=== PATIENT | female | born 1945 | race Hispanic/Latino ===

== ENCOUNTER → 2023-06-19 | Outpatient (CLI) | payer OTHER ==
[2023-06-19 15:46] LABS: CREATININE 0.9 mg/dL (0.5-1.5); MAGNESIUM 1.9 mg/dL (1.80-2.40); POTASSIUM 3.8 mmol/L (3.5-5.1)
== END | disposition home or self-care (01) ==
LOC: LAB 13:56
PROVIDERS: ATTEND Physician Assistant
DX: I10 Essential (primary) hypertension (principal); E78.5 Hyperlipidemia, unspecified
CPT/HCPCS: 36415; 80048; 83735; 83880

== ENCOUNTER 2025-03-02 08:41 | Day surgery (SDC) | payer OTHER ==
[2025-02-27 11:33] LABS: BASOPHILS # (AUTO) 0.01 K/uL (0.00-0.20); BASOPHILS % (AUTO) 0.3 % (0.0-5.0); EOSINOPHILS # (AUTO) 0.03 K/uL (0.00-0.70); EOSINOPHILS % (AUTO) 0.8 % (0.0-8.0); HEMATOCRIT 29.8 % (36-48); IMMATURE GRANULOCYTE ABSOLUTE 0.34 K/uL (0-1); LYMPHOCYTES # (AUTO) 1.3 K/uL (1.0-4.8); LYMPHOCYTES % (AUTO) 32.4 % (21.0-51.0); MEAN CORPUSCULAR HEMOGLOBIN 27.9 pg (27.0-33.0); MEAN CORPUSCULAR HGB CONC 31.5 g/dL (32.0-36.0); MEAN CORPUSCULAR VOLUME 88.4 fL (79-99); MONOCYTES # (AUTO) 0.3 K/uL (0.1-1.0); NEUTROPHILS % (AUTO) 50.7 % (40.0-77.0); PLATELET COUNT (AUTO) 193 K/uL (130-400); RED BLOOD CELL COUNT(AUTO) 3.37 MIL/uL (4.00-5.50); RED CELL DISTRIBUTION WIDTH 18.8 % (11.0-15.5); WHITE BLOOD COUNT (AUTO) 3.9 K/uL (4.8-10.8)
[2025-02-27 11:41] LABS: CREATININE 0.9 mg/dL (0.5-1.0); POTASSIUM 3.4 mmol/L (3.5-5.1)
[2025-02-27 14:36] VITALS: BP 132/78; PULSE 73; RESP 14; TEMP 97.5
--- NOTE | 2025-02-28 11:15 | NUR ---
REPORT REPORTED CBC AND BMP TO DR RUBIO. OK TO PROCEED
[2025-03-02] VITALS (7 sets, daily range): BP systolic 102–113; BP diastolic 38–72; PULSE 50–54; RESP 16–20; TEMP 97–97.9
[~2025-03-02] VITALS: Ht 147.3 cm; Wt 49.8 kg
[~2025-03-02 08:41] MED LIST: ALLO100T PO; APIX5TAB PO; ATOR40TA69 PO; CARV3.12 PO; CLOP75TA32 PO; DRON400T7 PO; FURO20TA4 PO; MIDO5TAB4 PO; PREG75CA76 PO; SACU1TAB PO; SPIR25TA6 PO
--- NOTE | 2025-03-02 09:03 | EKG ---
[facility] Test Date: 2025-03-02 Test Time: 09:00:08 Pat Name: EB WOLFE Department: [facility] Gender: F Instructional Leader: [id number] : 1945 Requested By: ADA RUBIO Order Number: [id number] Reading MD: Bright Solomon Measurements Intervals [place] Rate: 54 P: 0 PA: 0 QRS: 230 QRSD: 129 T: 66 QT: 506 QTc: 494 Interpretive Statements Atrial flutter Ventricular premature complex Anterolateral infarct, old No previous ECG available for comparison Electronically Signed On 03-03-2025 15:50:41 CDT by Bright Solomon Please click the below link to view image of tracing.
[2025-03-02] MEDS ORDERED: 0.9%NACL 1000ML 1,000 ML IV SCH (11:00)
[2025-03-02] MEDS ORDERED: proPOFol 10 MG/ML 20ML VIAL IV ONE (12:54)
--- NOTE | 2025-03-02 13:03 | NUR ---
PT SYNCHRONIZED CARDIOVERTED 150 JOULES PT TOLERATED WELL NAD VSS PT REMAINED IN A FIB
--- NOTE | 2025-03-02 13:09 | NUR ---
PT SYNCHRONIZED CARDIOVERTED 200 JOULES AT THIS TIME BY DR RAMIRO WANG VSS PT DID CONVERT TO NSR
--- NOTE | 2025-03-02 13:24 | EKG ---
[facility] Test Date: 2025-03-02 Test Time: 13:05:34 Pat Name: EB WOLFE Department: [facility] Room: [facility] Gender: F Tack Welder: [id number] : 1945 Requested By: ADA RUBIO Order Number: [id number] Reading MD: Bright Solomon Measurements Intervals [place] Rate: 54 P: 0 HI: 181 QRS: -55 QRSD: 128 T: 90 QT: 511 QTc: 475 Interpretive Statements Sinus rhythm Ventricular premature complex Left bundle branch block Compared to ECG 03/02/2025 09:00:08 Left bundle-branch block now present Atrial flutter no longer present Myocardial infarct finding no longer present Electronically Signed On 03-03-2025 15:50:57 CDT by Bright Solomon Please click the below link to view image of tracing.
--- NOTE | 2025-03-02 13:30 | NUR ---
PT AWAKE VSS NAD
--- NOTE | 2025-03-02 16:26 | EKG ---
[facility] Test Date: 2025-03-02 Test Time: 13:34:00 Pat Name: EB WOLFE Department: [facility] Room: Gender: F Infection Control Manager: [id number] : 1945 Requested By: ADA RUBIO Order Number: [id number] Reading MD: Bright Solomon Measurements Intervals [place] Rate: 54 P: 0 HI: 0 QRS: -48 QRSD: 106 T: 181 QT: 554 QTc: 528 Interpretive Statements Atrial fibrillation Incomplete RBBB and LAFB Probable LVH with secondary repol abnrm Prolonged QT interval Electronically Signed On 03-03-2025 15:51:10 CDT by Bright Solomon Please click the below link to view image of tracing.
--- NOTE | 2025-03-13 12:02 | PRN ---
Procedure Note Date of procedure: 03/02/2025 Diagnosis: Persistent atrial fibrillation Procedure: Cardioversion Physician: Wiley Rubio MD The patient was brought to the day patient area in a fasting state. Anesthesia was provided by the anesthesia service. Cardioversion was performed with a synchronized shock at 200 joules resulting in sinus rhythm. The patient tolerated the procedure well. Final diagnosis: Persistent atrial fibrillation, status post successful cardio version Disposition: The patient will be discharged later today and will follow up with me in the office in approximately two weeks. WILEY RUBIO MD March 13, 2025 12:02
== END 2025-03-02 14:53 | disposition home or self-care (01) ==
LOC: DAH 08:41
PROVIDERS: ATTEND Internal Medicine Cardiovascular Disease
DX: I48.19 Other persistent atrial fibrillation (principal); I25.5 Ischemic cardiomyopathy; I44.7 Left bundle-branch block, unspecified; I25.2 Old myocardial infarction; I49.3 Ventricular premature depolarization; I10 Essential (primary) hypertension; E78.5 Hyperlipidemia, unspecified; I21.4 Non-ST elevation (NSTEMI) myocardial infarction; I25.10 Atherosclerotic heart disease of native coronary artery without angina pectoris; E11.9 Type 2 diabetes mellitus without complications; I45.19 Other right bundle-branch block; Z95.0 Presence of cardiac pacemaker; Z85.3 Personal history of malignant neoplasm of breast; Z88.6 Allergy status to analgesic agent; Z79.899 Other long term (current) drug therapy
CPT/HCPCS: 80048; 85025; 36415; 92960; 93005 ×3; J2704; A4620; A4215; A4222; A4221; A4663; A4216; A4606; A4223 ×3; J3490

== ENCOUNTER 2025-04-19 09:27 | Observation (INO) | payer OTHER ==
[2025-04-17 12:53] LABS: BASOPHILS # (AUTO) 0.01 K/uL (0.00-0.20); BASOPHILS % (AUTO) 0.4 % (0.0-5.0); EOSINOPHILS # (AUTO) 0.13 K/uL (0.00-0.70); EOSINOPHILS % (AUTO) 4.6 % (0.0-8.0); HEMATOCRIT 27.7 % (36-48); IMMATURE GRANULOCYTE ABSOLUTE 0.01 K/uL (0-1); LYMPHOCYTES # (AUTO) 1.1 K/uL (1.0-4.8); LYMPHOCYTES % (AUTO) 39.6 % (21.0-51.0); MEAN CORPUSCULAR HEMOGLOBIN 27.8 pg (27.0-33.0); MEAN CORPUSCULAR HGB CONC 33.6 g/dL (32.0-36.0); MEAN CORPUSCULAR VOLUME 82.9 fL (79-99); MONOCYTES # (AUTO) 0.3 K/uL (0.1-1.0); NEUTROPHILS # (AUTO) 1.3 K/uL (1.8-7.7); PLATELET COUNT (AUTO) 162 K/uL (130-400); RED BLOOD CELL COUNT(AUTO) 3.34 MIL/uL (4.00-5.50); RED CELL DISTRIBUTION WIDTH 15.8 % (11.0-15.5); WHITE BLOOD COUNT (AUTO) 2.8 K/uL (4.8-10.8)
[2025-04-17 13:04] LABS: CREATININE 1.2 mg/dL (0.5-1.0); POTASSIUM 3.3 mmol/L (3.5-5.1)
[2025-04-17 13:06] LABS: INR 1.14 (0.85-1.15); PROTHROMBIN TIME 11.9 SEC (9.6-11.6)
[2025-04-17 13:07] LABS: PARTIAL THROMBOPLASTIN TIME 35.5 SEC (26.3-35.5)
[2025-04-17 13:08] VITALS: BP 104/58; PULSE 58; RESP 18; TEMP 97.6
--- NOTE | 2025-04-17 13:21 | EKG ---
[facility] Test Date: 2025-04-17 Test Time: 12:38:02 Pat Name: EB WOLFE Department: [facility] Room: [facility] Gender: F Proofer Apprentice: [id number] : 1945 Requested By: Manjinder NAVARRO Order Number: [id number] Reading MD: Vaughn Decker Measurements Intervals [place] Rate: 54 P: 0 MI: 257 QRS: -50 QRSD: 141 T: 119 QT: 478 QTc: 442 Interpretive Statements Sinus arrhythmia Atrial premature complex Prolonged MI interval RBBB and LAFB LVH with secondary repolarization abnormality Compared to ECG 03/02/2025 13:34:00 Atrial premature complex(es) now present First degree AV block now present Atrial fibrillation no longer present Incomplete right bundle-branch block no longer present Prolonged QT interval no longer present Electronically Signed On 04-19-2025 10:16:44 CDT by Vaughn Decker Please click the below link to view image of tracing.
[2025-04-17 15:07] LABS: BAND NEUTROPHILS % (MANUAL) 1 % (0-2); EOSINOPHILS % (MANUAL) 4 % (1-6); LYMPHOCYTES % (MANUAL) 34 % (22-44); MAN.DIFF COMMENT-IMPRESSION MANUAL DIFFERENTIAL; MONOCYTES % (MANUAL) 6 % (2-9); REACTIVE LYMPHOCYTES 8 % (0-0); SEGMENTED NEUTROPHILS % 47 % (40-70); TOTAL CELLS COUNTED 100
--- NOTE | 2025-04-18 12:42 | NUR ---
report reported bmp and cbc to belen boone np. ok to proceed
[~2025-04-19] VITALS: Ht 144.8 cm; Wt 46.0 kg
[2025-04-19] VITALS (12 sets, daily range): BP systolic 90–145; BP diastolic 45–89; PULSE 65–91; RESP 16–20; TEMP 96.3–98.2; O2SAT 97
[~2025-04-19 09:27] MED LIST changes: -DRON400T7 PO; +EZET10TA48 PO; -FURO20TA4 PO; +FURO40TA5 PO; +METO2.5T2 PO; +PANT40TA54 PO; +PROLIA INJ; -SPIR25TA6 PO
[2025-04-19] MEDS: 0.9%NACL 1000ML 1,000 ML IV SCH (10:50)
[2025-04-19] MEDS ORDERED: SODIUM BICARB 50MEQ 50ML VIAL 50 ML ONE (14:43)
[2025-04-19] MEDS ORDERED: BUPIvacaine/PF 0.25% 30ML VIAL IJ ONE (14:43)
[2025-04-19] MEDS ORDERED: LIDOCAINE HCL 1% MDV 50ML VIAL ONE (14:43)
[2025-04-19] MEDS ORDERED: MIDAZOLAM HCL 1 MG/ML 2ML VIAL ONE ×4 (14:45→17:38)
[2025-04-19] MEDS ORDERED: FENTanyl CITRate PF 50 MCG/1 ML 2ML VIAL ONE ×2 (14:45→17:38)
[2025-04-19] MEDS ORDERED: ceFAZolin SODIUM 1 GM VIAL ONE (14:47)
[2025-04-19] MEDS ORDERED: IOHEXOL-350 50ML VIAL IV ONE (14:57)
[2025-04-19] MEDS ORDERED: ATROPINE 1MG SYG IVP ONE (15:25)
[2025-04-19] MEDS ORDERED: phenylEPHRINE HCL 10 MG/ML 1ML VIAL IV ONE (15:46)
[2025-04-19] MEDS ORDERED: DEXTROSE 50%-WATER 50 ML DISP.SYRIN IV PRN (18:00)
[2025-04-19] MEDS ORDERED: PANTOPrazole 40 MG TAB DR PO SCH (18:00)
[2025-04-19] MEDS ORDERED: acetaMINOPHEN WITH coDEINE 1 TAB TAB PO PRN (18:00)
--- NOTE | 2025-04-19 18:40 | NUR ---
ADMISSION PATIENT ARRIVED ON FLOOR. RIGHT PACEMAKER SITE WITHOUT REDNESS, BRUISING, SWELLING, HEMATOMA. PATIENT ALERT AND ORIENTED, A LITTLE SLEEPY, BUT RESPONSIVE. MINOR COMPLAINTS OF DISCOMFORT TO INCISION SITE. ART OBJECTS REPAIRER, RN TO ADMIT PATIENT AND COMPLETE ADMISSION STATUS.
--- NOTE | 2025-04-19 19:37 | HP ---
[facility] HISTORY & PHYSICAL Date Patient Seen: Apr 19, 2025 Time of Visit: 19:36 Supervising Physician: Dr. Shaheed Gonzáles Primary Care Physician: Dr. Porter Castelan Outpatient Specialists: Dr. Sudeep Campbell Inpatient Consults: Dr. Sudeep Campbell PROBLEM LIST: Cardiomyopathy, s/p BIV ICD insertion done on 04/19/[address] Sudeep Campbell Advanced LV dysfunction with EF 30% per echo on March 2025 Coronary artery disease s/p CABG x2 with PATEL-LAD and a SVG-RCA on 08/13/[address] 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 Marcano is a 79-year-old female with a history of DM, HTN, HDL, neuropathy, left breast lumpectomy, radiation therapy and chemo for left breast cancer, mastectomy, CAD s/p CABG x2, advanced LV dysfunction with EF 30% per echo on March 2025, and cardiomyopathy who presented to [facility] for elective procedure. Patient underwent BIV ICD insertion on 04/19/[address] Sudeep Campbell. The patient was admitted to PCCU for overnight monitoring. BIS team was consulted for medical management. Remarkable labs results: WBCs 2.8, RBCs 3.34, hemoglobin 9.3, hematocrit 27.7. Sodium 131, potassium 3.3, chloride 92, BUN 49, creatinine 1.2, GFR 47, blood glucose 114, total calcium 8.1. PT 11.9. I assessed the patient at bedside in 231. The patient appeared comfortable, breathing was even, unlabored, in no distress. Patient reports still little drowsy from the surgery but is oriented x3. daughter and at bedside. I informed them of plan of care. They verbalized understanding and are in agreement with the plan. Plan and assessment are listed below. PAST MEDICAL HX: see above PAST SURGICAL HX: x3, cholecystectomy, left mastectomy, CABG x2 with PATEL to LAD and a SVG-RCA on August 13, [address] Galdamez SOCIAL HISTORY: No tobacco, ETOH, or illicit drug use Family history: FATHER: Unknown. MOTHER: Alzheimer's dementia, Parkinson's Coded Allergies: tramadol (Unverified Allergy, Unknown, 02/27/25) REVIEW OF SYSTEMS: 12 point ROS reviewed with patient. Pertinent positives mentioned above. Otherwise negative. PHYSICAL EXAM: GENERAL: Alert, awake oriented x 3 HEENT: EOMI, Sclera non icteric, moist mucosa NECK: Supple, no JVD, trachea midline LUNGS: Clear breath sounds bilaterally. No wheezes HEART: Regular rate and rhythm. Normal S1 and S2, without murmurs ABD: Abdomen soft, nontender. Bowel sounds present EXT: No clubbing cyanosis or edema CHEST WALL: Clean dressing in place. NEURO: Alert and oriented x3, follows commands Vital Signs (last 8hr) Date Time Temp Pulse Resp B/P (MAP) Pulse Ox O2 Delivery O2 Flow Rate FiO2 04/19/25 18:40 96.3 71 16 116/60 100 Room Air LABS: DIAGNOSTICS / RADIOLOGY RESULTS: [ ] PLAN Admit to PCCU s/p BIV ICD insertion with continuous cardiac monitoring. Follow Dr. Campbell's recommendations. Bed rest for now. Start medications ordered by Dr. Campbell: -Doxycycline, metolazone, Plavix, atorvastatin, amlodipine, Entresto, midodrine, Lasix, CTA, Coreg, Lyrica, Protonix, Tylenol codeine. P.r.n. medications for: Pain management, nausea, vomiting, hypertension, shortness of breath. Blood pressures every4 hours and as needed. Glucometer checks a.c. and HS with insulin regular sliding scale. A.m. labs. Monitor renal and liver function. Monitor electrolytes and treat accordingly. DVT and GI prophylaxis. Further orders upon hospitalization course. NEURO: Minimize central acting medications as possible. Maintain fall precautions, adequate lighting during the day PULMONARY: Supplemental 02 as needed. Maintain aspiration precautions at all times CARDIOVASCULAR: Follow hemodynamics. Vital signs per facility protocol GI & NUTRITION: Continue with nutritional support. Continue stool softeners and laxatives as needed. KIDNEYS & ELECTROLYTES: Strict monitoring of intake, output and overall fluid balance. Avoid nephrotoxic medications to the extent possible. Medications to be dosed according to renal function. Monitor electrolytes and replace as needed ENDOCRINE: Maintain blood glucose between 100-180 at all times. Hypoglycemia protocol in place INFECTIOUS DISEASE: Trend temperature, WBC and procalcitonin level Follow cultures, deescalate antibiotics as soon as possible. Panculture if new onset fever ONCOLOGY/HEMATOLOGY/COAGULATION: Monitor for s/s of bleeding Monitor hemoglobin, coagulation studies as needed SKIN: Pressure ulcer prevention per facility protocol Specialty mattress ORTHO/REHAB: Continue PT/OT Prophylaxis: Continue GI and DVT prophylaxis Code Status: Full Resuscitation Disposition: TBD ATTESTATION BY PHYSICIAN I have evaluated the patient chart, medical records, and spoke with appropriate staff. I reviewed the documentation, medical decision making, and treatment plan as noted by the mid-level provider above. I agree with the findings and plan of care. Waldo Gonzáles MD, [facility] Apr 19, 2025 19:36
[2025-04-19] MEDS: miDODRine HCL 5 MG TABLET PO SCH (21:00)
[2025-04-19] MEDS: INSULIN humuLIN R 100 UNIT/ML 3ML SQ SCH (21:00)
--- NOTE | 2025-04-19 22:05 | NUR ---
RE: INABILITY TO VOID AND 710ML PREVOID VIA BLADDER SCANNER PT WAS PUT ON BED ORTEGA FOR 20 MINUTES WITHOUT SUCCESS, IN AND OUT CATHETERIZATION PERFORMED PER PROVIDER ORDER. ASEPTIC TECHNIQUE MAINTAINED THROUGHOUT PROCEDURE. PT POSITIONED SUPINE, PERINEAL AREA CLEANSED WITH ANTISEPTIC SOLUTION. LINDA YELLOW URINE RETURNED TOTAL OUTPUT OF 700ML. CATHETER REMOVED POST DRAINAGE. PATIENT TOLERATED PROCEDURE WELL WITHOUT COMPLICATIONS.
[2025-04-19] MEDS: EZETIMIBE 10 MG TAB PO SCH (22:22)
[2025-04-19] MEDS: furoSEMIDE 40 MG TABLET PO SCH (22:22)
[2025-04-19] MEDS: pregABALin 75 MG CAPSULE PO SCH (22:22)
[2025-04-19] MEDS: carVEDIlol 3.125 MG TABLET PO SCH (22:23)
[2025-04-19] MEDS: SACUBITRIL/VALSARTAN 1 EACH TABLET PO SCH (22:23)
[2025-04-19] MEDS: ceFAZolin SODIUM 1 GM VIAL IVPB SCH (22:47)
[2025-04-20] VITALS (8 sets, daily range): BP systolic 83–110; BP diastolic 46–66; PULSE 60–80; RESP 16–18; TEMP 97.8–98.9; O2SAT 97–99
--- NOTE | 2025-04-20 01:43 | NUR ---
Call made to [facility] due to bp 97/47 at this time. midodrine 5mg was held last night due to elevated bp.
[2025-04-20] MEDS: miDODRine HCL 5 MG TABLET PO ONE (01:54)
--- NOTE | 2025-04-20 01:54 | NUR ---
Received order for midodrine 5mg po x1.
--- NOTE | 2025-04-20 02:03 | NUR ---
@2130pm 04/19/25 contacted [facility]. Reported urine retention of 710ml of urine in bladder as per bladder scan. Patient voiced that she was unable to urinate and was feeling discomfort to suprapubic area. Received order to try to get patient to void in bed garcia, if unable to order in and out straight cath x1.
[2025-04-20] MEDS: acetaMINOPHEN WITH coDEINE 1 TAB TAB PO PRN (04:08)
--- NOTE | 2025-04-20 09:12 | NUR ---
DCP: HOME Pt lives at home with her Navjot Marcano [phone]. Pt reports that assists her with ADLS and transportation as needed, most of time pt is independent. They have applied for provider services and are pending decision. Couple receives food stamp assistance $200 a month. Pt has regular walker and shower chair, no H or HD services. PCP is Porter Castelan and uses [facility] for rx needs. Denies need for SNF, states her will transport her home at dc Addendum: 04/20/25 at 0912 by DIANE BOWLING Amended: Links added.
[2025-04-20] MEDS: metoLAZONE 2.5 MG TABLET PO SCH (09:26)
[2025-04-20] MEDS: DOXYCYCLINE HYCLATE 100 MG TABLET PO SCH (09:26)
[2025-04-20] MEDS: alloPURInol 100 MG TABLET PO SCH (09:26)
[2025-04-20] MEDS: atorVAStatin 40 MG TABLET PO SCH (09:27)
[2025-04-20] MEDS: cloPIDOgrel 75MG TAB PO SCH (09:27)
--- NOTE | 2025-04-20 09:59 | PN ---
[facility] PROGRESS NOTE Date Patient Seen: Apr 20, 2025 Time of Visit: 09:59 Supervising Physician: [Santo Gilbert MD ] Primary Care Physician: Dr. Porter Castelan Outpatient Specialists: Dr. Sudeep Navarro Inpatient Consults: Dr. Sudeep Navarro PROBLEM LIST: Cardiomyopathy, s/p BIV ICD insertion done on 04/19/[address] Sudeep Navarro Advanced LV dysfunction with EF 30% per echo on March 2025 Coronary artery disease s/p CABG x2 with PATEL-LAD and a SVG-RCA on 08/13/[address] 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 She is awake alert and oriented x3. Ambulating to restroom without any respiratory distress. Although she does report pain 8/10 to right chest wall incision post ICD placement. Per tele monitors patient is ventricular paced in the 70s. Blood pressures were marginal this morning 83/ 46 as per patient's daughter she takes midodrine at home 5 mg 3 times a day. Education was restarted and blood pressures improved to one 0 7/48 saturating 100% at room air in no apparent respiratory distress and afebrile. H&H is stable 8.9/27.7 with a platelet count of 157 K. sodium of 133 potassium of 2.6 was covered per protocol. Creatinine of 0.9 with a GFR of 66 improved from previous labs. Glucose 152 mg/dL albumin of 2.9. On chest x-ray there is no pneumothorax. Mild bilateral pulmonary infiltrates are seen may be related to mild pulmonary vascular congestion with possible superimposed pneumonitis. Small right pleural effusion is seen. We will continue follow cardiology recommendations. Likely DC in the next 24-48 hours once cleared by cardiology team. REVIEW OF SYSTEMS: 12 point ROS reviewed with patient. Pertinent positives mentioned above. Othe rwise negative. PHYSICAL EXAM: GENERAL: Alert, awake oriented x 3 HEENT: EOMI, Sclera non icteric, moist mucosa NECK: Supple, no JVD, trachea midline LUNGS: Clear breath sounds bilaterally. No wheezes HEART: Regular rate and rhythm. Normal S1 and S2, without murmurs ABD: Abdomen soft, nontender. Bowel sounds present EXT: No clubbing cyanosis or edema CHEST WALL: Clean dressing in place. NEURO: Alert and oriented x3, follows commands Vital Signs (last 8hr) Date Time Temp Pulse Resp B/P (MAP) Pulse Ox O2 Delivery O2 Flow Rate FiO2 04/20/25 08:00 98.8 72 16 83/46 100 Room Air 04/20/25 03:00 99.0 80 18 110/66 97 Room Air LABS: Chemistry Labs: Test 04/20/25 05:41 Range/Units Whole Blood Glucose 96 70-110 MG/DL DIAGNOSTICS / RADIOLOGY RESULTS: [ [place] [address] [place] [id number] IMAGING REPORT Signed PATIENT: EB WOLFE MR#: [id number] : 1945 SEX: F AGE: 79 LOCATION: 2AH ORDER 2300 STATUS: ADM IN REPORT#: [id number] SERVICE 0600 REASON: s/p biv icd insertion ORDERING PHYSICIAN: Manjinder NAVARRO II, MD PROCEDURE: CXR1VW - CHEST 1VW CHEST 1VW HISTORY: Pacemaker insertion COMPARISON: 08/18/2011 FINDINGS: A frontal projection of the chest was obtained. Mild bilateral pulmonary infiltrates are seen may be related to mild pulmonary vascular congestion with possible superimposed pneumonitis. Right pleural effusion is seen. Poststernotomy changes are seen. The heart is enlarged. Degenerative changes of the thoracolumbar spine are present. Pacemaker is seen entering from the right. Degenerative changes are seen. No evidence of aortic calcification is seen. IMPRESSION: 1. Mild bilateral pulmonary infiltrates are seen may be related to mild pulmonary vascular congestion with possible superimposed pneumonitis. DICTATED BY: CJ FINLEY MD DATE: 04/20/25 1218 ELECTRONICALLY SIGNED BY: CJ FINLEY MD DATE: 04/20/25 1222 ] PLAN continue PCU status l likely discharge in next 24 to 48 hours once cleared by cardiology Follow cardiology recommendations Hold amlodipine, Entresto due to chronic hypotension on midodrine at home Glucometer checks a.c. and HS with insulin regular sliding scale. A.m. labs. Monitor renal and liver function. Monitor electrolytes and treat accordingly. DVT and GI prophylaxis. Further orders upon hospitalization course. NEURO: Minimize central acting medications as possible. Maintain fall precautions, adequate lighting during the day PULMONARY: Supplemental 02 as needed. Maintain aspiration precautions at all times CARDIOVASCULAR: Follow hemodynamics. Vital signs per facility protocol GI & NUTRITION: Continue with nutritional support. Continue stool softeners and laxatives as needed. KIDNEYS & ELECTROLYTES: Strict monitoring of intake, output and overall fluid balance. Avoid nephrotoxic medications to the extent possible. Medications to be dosed according to renal function. Monitor electrolytes and replace as needed ENDOCRINE: Maintain blood glucose between 100-180 at all times. Hypoglycemia protocol in place INFECTIOUS DISEASE: Trend temperature, WBC and procalcitonin level Follow cultures, deescalate antibiotics as soon as possible. Panculture if new onset fever ONCOLOGY/HEMATOLOGY/COAGULATION: Monitor for s/s of bleeding Monitor hemoglobin, coagulation studies as needed SKIN: Pressure ulcer prevention per facility protocol Specialty mattress ORTHO/REHAB: Continue PT/OT Prophylaxis: Continue GI and DVT prophylaxis Code Status: Full Resuscitation Disposition: TBD ATTESTATION BY PHYSICIAN I attest that I reviewed and discussed the case with the Physician Live In Housekeeper as well as agree with the Physician Live In Housekeeper's findings, plans of care, and documentation above. Santo Bowman MD, [facility] Apr 20, 2025 09:59
[2025-04-20] MEDS ORDERED: 0.9% NACL 250ML 250 ML IV SCH (10:00)
[2025-04-20 10:14] LABS: BASOPHILS # (AUTO) 0.01 K/uL (0.00-0.20); BASOPHILS % (AUTO) 0.3 % (0.0-5.0); EOSINOPHILS # (AUTO) 0.05 K/uL (0.00-0.70); EOSINOPHILS % (AUTO) 1.3 % (0.0-8.0); HEMATOCRIT 27.7 % (36-48); IMMATURE GRANULOCYTE ABSOLUTE 0.04 K/uL (0-1); LYMPHOCYTES # (AUTO) 0.9 K/uL (1.0-4.8); LYMPHOCYTES % (AUTO) 22.8 % (21.0-51.0); MEAN CORPUSCULAR HEMOGLOBIN 27.5 pg (27.0-33.0); MEAN CORPUSCULAR HGB CONC 32.1 g/dL (32.0-36.0); MEAN CORPUSCULAR VOLUME 85.5 fL (79-99); MONOCYTES # (AUTO) 0.3 K/uL (0.1-1.0); MONOCYTES % (AUTO) 7.7 % (3.0-13.0); NEUTROPHILS # (AUTO) 2.5 K/uL (1.8-7.7); NEUTROPHILS % (AUTO) 66.8 % (40.0-77.0); PLATELET COUNT (AUTO) 157 K/uL (130-400); RED BLOOD CELL COUNT(AUTO) 3.24 MIL/uL (4.00-5.50); RED CELL DISTRIBUTION WIDTH 15.7 % (11.0-15.5); WHITE BLOOD COUNT (AUTO) 3.8 K/uL (4.8-10.8)
[2025-04-20 10:37] LABS: ALBUMIN 2.9 g/dL (3.5-5.0); BILIRUBIN,TOTAL 0.4 mg/dL (0.2-1.0); CREATININE 0.9 mg/dL (0.5-1.0); TOTAL PROTEIN, SERUM 6.7 g/dL (6.0-8.3)
[2025-04-20 10:41] LABS: POTASSIUM 2.6 mmol/L (3.5-5.1)
[2025-04-20] MEDS: PoTASSium chloRIDE 20MEQ ER 20 MEQ ERTAB PO PRN (11:15)
[2025-04-20] MEDS: acetaMINOPHEN 500 MG TABLET PO ONE (11:17)
[2025-04-20] MEDS ORDERED: PoTASSium chl 10% ELIXIR 20MEQ 20 MEQ/15 ML UDCUP PO PRN (11:30)
[2025-04-20] MEDS ORDERED: PoTASSium chloRIDE 20MEQ/100ML 100 ML IV PRN (11:30)
[2025-04-20] MEDS ORDERED: MAGNESIUM 2GM PREMIX 50ML 50 ML IV PRN (11:30)
--- NOTE | 2025-04-20 12:22 | HMCIMG ---
CHEST 1VW HISTORY: Pacemaker insertion COMPARISON: 08/18/2011 FINDINGS: A frontal projection of the chest was obtained. Mild bilateral pulmonary infiltrates are seen may be related to mild pulmonary vascular congestion with possible superimposed pneumonitis. Right pleural effusion is seen. Poststernotomy changes are seen. The heart is enlarged. Degenerative changes of the thoracolumbar spine are present. Pacemaker is seen entering from the right. Degenerative changes are seen. No evidence of aortic calcification is seen. IMPRESSION: 1. Mild bilateral pulmonary infiltrates are seen may be related to mild pulmonary vascular congestion with possible superimposed pneumonitis.
--- NOTE | 2025-04-20 16:22 | NUR ---
PACEMAKER INTERROGATED CALLED [facility] TO MAKE SURE INTERROGATION WENT THROUGH. MESSAGE WILL BE SENT TO LOCAL REP. IF REPORT NOT FOUND LOCAL REP WILL COME AND INTERROGATE.
--- NOTE | 2025-04-20 17:34 | NUR ---
INTERROGATION UPDATE RECEIVED A CALL FROM [facility], STATED REPORT DID NOT GO THROUGH AND WILL BE BY TO INTERROGATE DEVICE.
--- NOTE | 2025-04-20 22:00 | NUR ---
Pt refused prn tylenol with codeine stating she is allergic. Stated she was not allergic to tramadol. Cannot explain how codeine made her feel except stating she "did not like how it felt."
[2025-04-21 03:00] VITALS: BP 103/56; PULSE 71; RESP 18; TEMP 98.2
[2025-04-21 07:30] VITALS: O2SAT 97
[2025-04-21 08:00] VITALS: BP 90/46; PULSE 73; RESP 16; TEMP 98.7
[2025-04-21 10:22] LABS: MAGNESIUM 1.9 mg/dL (1.80-2.40); POTASSIUM 4.3 mmol/L (3.5-5.1)
[2025-04-21] MEDS ORDERED: miDODRine HCL 5 MG TABLET PO ONE (10:30)
[2025-04-21 12:00] VITALS: BP 116/58; PULSE 74; RESP 16; TEMP 98.9
--- NOTE | 2025-04-21 12:18 | DS ---
[facility] DISCHARGE SUMMARY Date Patient Seen: Apr 21, 2025 Time of Visit: 12:18 Supervising Physician: MATTHEW PAIGE MD Primary Care Physician: Dr. Porter Castelan Outpatient Specialists: Dr. Sudeep Campbell Inpatient Consults: Dr. Sudeep Campbell PROBLEM LIST: Cardiomyopathy, s/p BIV ICD insertion done on 04/19/[address] Sudeep Campbell Advanced LV dysfunction with EF 30% per echo on March 2025 Coronary artery disease s/p CABG x2 with PATEL-LAD and a SVG-RCA on 08/13/[address] 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 HPI 79-year-old female with a complex medical history including: Type 2 Diabetes Mellitus Hypertension Hyperlipidemia Peripheral neuropathy Left breast cancer (s/p lumpectomy, chemotherapy, radiation, and subsequent mastectomy) Coronary artery disease s/p CABG (2010) Advanced systolic heart failure with EF of 30% (Echo March 2025) Nonischemic cardiomyopathy Presented for elective placement of a BIV-ICD by Dr. Campbell on 04/19/2025. We were consulted for perioperative medical management and comorbidity optimization. Post-op Day 1: Patient was alert, oriented x3, and ambulating independently. Reported right chest wall pain (8/10) at the ICD site. Tylenol seemed to control pain. Vitals: BP 83/46 mmHg; HR paced in 70s; SpO2 100% on room air. Antihypertensives (Entresto, carvedilol) were held due to hypotension. Home midodrine 5 mg TID resumed for symptomatic support. Labs: Hgb 8.9, Hct 27.7, platelets 157K. CXR: Mild pulmonary vascular congestion. Post-op Day 2: Hemodynamically improved; SBP ranging 60219 mmHg. Afebrile, saturating well at 99% on room air. Labs: Stable Hgb 8.9, K+ 4.3 (improved from 2.9 on admission), Cr 1.0, GFR 58, glucose 125. No overnight complications reported. Decision made to continue midodrine 5 mg TID and hold antihypertensives until outpatient follow-up. Plan to resume heart failure therapy gradually at follow-up with cardiology. Case discussed with Dr. Villafuerte (covering sweatband flanger) who agreed with the current management plan. CHRONIC PROBLEMS: continue previous management per PCP unless otherwise indicated GUEST SERVICES ASSISTANT FINDINGS/RECOMMENDATIONS: Per cardiology- Decision made to continue midodrine 5 mg TID and hold antihypertensives until outpatient follow-up. Plan to resume heart failure therapy gradually at follow-up with cardiology. follow up in [address] Zhang and Follow up in 1 week with sweatband flanger. Device was interrogated and reviewed by Dr Villafuerte who cleared pt for discharge. PROCEDURES: as mentioned above DISCHARGE MEDICATIONS: as below Pt hemodynamically stable and afebrile at time of discharge. PCP notified of patients admission, hospital course and discharge. New Medications: Midodrine HCl (Midodrine HCl) 5 Mg Tablet 1 TAB PO TID for 30 Days, #90 TAB 0 Refills Potassium Chloride (Potassium Chloride) 20 Meq Tab.er.prt 1 TAB PO 3x/week for 30 Days, #30 TAB 0 Refills On Wednesdays and Fridays Continued Medications: Allopurinol (Allopurinol) 100 Mg Tablet 1 TAB PO DAILY for 30 Days, #30 TAB 0 Refills Apixaban (Eliquis) 5 Mg Tablet 1 TAB PO BID, 0 Refills Atorvastatin Calcium (Lipitor) 40 Mg Tablet 1 TAB PO DAILY for 30 Days, #30 TAB 0 Refills Clopidogrel Bisulfate (Clopidogrel) 75 Mg Tablet 1 TAB PO DAILY PRN for LOW BLOOD PRESSURE, 0 Refills Ezetimibe (Ezetimibe) 10 Mg Tablet 10 MG PO PM Furosemide (Furosemide) 40 Mg Tablet 40 MG PO BID Metolazone (Metolazone) 2.5 Mg Tablet 2.5 MG PO AM, TAB Midodrine HCl (Midodrine HCl) 5 Mg Tablet 1 TAB PO TID for 30 Days, #90 TAB 0 Refills Pantoprazole Sodium (Pantoprazole Sodium) 40 Mg Tablet.dr 40 MG PO AD, TAB Pregabalin (Pregabalin) 75 Mg Capsule 75 MG PO AD, CAP [Prolia] () Unknown Dose INJ [id number] Discontinued Medications: Carvedilol (Carvedilol) 3.125 Mg Tablet 1 TAB PO BID for 30 Days, #60 TAB 0 Refills Sacubitril/Valsartan (Entresto 24 mg-26 mg Tablet) 24 Mg-26 Mg Tablet 1 TAB PO BID, 0 Refills PHYSICAL EXAM: GENERAL: Alert, awake oriented x 3 HEENT: EOMI, Sclera non icteric, moist mucosa NECK: Supple, no JVD, trachea midline LUNGS: Clear breath sounds bilaterally. No wheezes HEART: Regular rate and rhythm. Normal S1 and S2, without murmurs incision to rt chest wall well approximated and no s/s of infection noted ABD: Abdomen soft, nontender. Bowel sounds present EXT: No clubbing cyanosis or edema. RT upper arm sling. CHEST WALL: Clean dressing in place. NEURO: Alert and oriented x3, follows commands Discharge Condition: Clinically stable Ambulating independently Tolerating oral intake Pain well controlled No new neurologic or cardiopulmonary defici FOLLOW-UP: Cardiology (Dr. Campbell or covering) 1 week post-discharge for ICD check and medication titration EP follow up with DR Zhang in 1 week. Primary Care Within 13 days. Wound care precautions reviewed RECOMMENDATIONS: See Discharge Instructions Discharge Instructions: Avoid raising the left arm above shoulder level x 46 weeks Monitor ICD site for signs of infection Maintain heart-healthy diet, restrict sodium Monitor BP and symptoms of hypotension Call provider for dizziness, chest pain, shortness of breath, or wound drainage This case was seen and discussed with my supervising physician. More than 30 minutes spent on discharge process, including evaluation of the patient, discussion with nursing staff, medication reconciliation and follow-up appointments ATTESTATION BY PHYSICIAN I attest that I reviewed and discussed the case with the Physician Attendant [employer] as well as agree with the Physician Attendant [employer]'s findings, plans of care, and documentation above. Matthew Bowman MD, NELLY J ARNP Apr 21, 2025 12:18
[2025-04-21] MEDS ORDERED: MIDO5TAB4 PO (12:21)
[2025-04-21] MEDS ORDERED: POTA-202 PO (12:21)
--- NOTE | 2025-04-21 16:20 | NUR ---
PT WAS DISCHARGED AFTER INSTRUCTIONS FOR WOUND CARE (PACEMAKER SITE) WAS GIVEN. PT'S DAUGHTER AND PT'S INSTRUCTIONS FOR CARE OF PACEMAKER SITE WAS GIVEN AND DEMONSTRATED HOW TO CHANGE THE DRESSING. APPOINTMENTS WERE MADE. PT WAS TAKEN TO PRIVATE VEHICLE BY WHEEL CHAIR.
== END 2025-04-21 16:40 | disposition home or self-care (01) ==
LOC: DAH 09:27 → DAHIP 09:28 → DAH 09:28 → 2AH 20:22
PROVIDERS: ADMIT Internal Medicine Critical Care Medicine; ATTEND Internal Medicine Cardiovascular Disease
DX: I42.8 Other cardiomyopathies (principal); I25.5 Ischemic cardiomyopathy; I48.19 Other persistent atrial fibrillation; I25.10 Atherosclerotic heart disease of native coronary artery without angina pectoris; D72.819 Decreased white blood cell count, unspecified; E87.1 Hypo-osmolality and hyponatremia; E87.6 Hypokalemia; E87.8 Other disorders of electrolyte and fluid balance, not elsewhere classified; N17.9 Acute kidney failure, unspecified; E78.5 Hyperlipidemia, unspecified; K86.1 Other chronic pancreatitis; I13.0 Hypertensive heart and chronic kidney disease with heart failure and stage 1 through stage 4 chronic kidney disease, or unspecified chronic kidney disease; E11.22 Type 2 diabetes mellitus with diabetic chronic kidney disease; I50.22 Chronic systolic (congestive) heart failure; N18.9 Chronic kidney disease, unspecified; I44.7 Left bundle-branch block, unspecified; D63.1 Anemia in chronic kidney disease; R00.1 Bradycardia, unspecified; C50.912 Malignant neoplasm of unspecified site of left female breast; E11.40 Type 2 diabetes mellitus with diabetic neuropathy, unspecified; E83.51 Hypocalcemia; Z79.899 Other long term (current) drug therapy; Z95.1 Presence of aortocoronary bypass graft; Z95.810 Presence of automatic (implantable) cardiac defibrillator; Z85.3 Personal history of malignant neoplasm of breast
CPT/HCPCS: 80048 ×2; 85025 ×2; 85610; 85730; 36415 ×3; 93005; 33225; 33249; 99156; 99157 ×5; 96365; 82948 ×7; 96366; 83735 ×2; 84132; 80053; 83605; 71045; 84145; C1777; C1898; C1769 ×4; C1900; C1882; C1894; G0378 ×47; J3010 ×2; J0690 ×3; J0665; J3490 ×2; J2250 ×4; J2371; Q9967; A4215; A4223 ×3; A4222; A4221; A4663; A4216; A4606; J0461; C-1882